=== PATIENT | male | born 1945 | race Caucasian/White ===

== ENCOUNTER → 2018-10-09 10:14 | Outpatient (CLI) | payer MEDICARE, SELFPAY ==
[2018-10-09 12:52] LABS: Absolute Lymphocyte Count 2.53 X10^3/uL (0.83-4.51); Absolute Neutrophil Count 6.1 X10^3/uL (2.0-7.7); Basophil# 0.09 X10^3/uL; Basophil% 0.9 % (0-1); Eosinophil# 0.13 X10^3/uL; Eosinophils% 1.3 % (0-5); Hematocrit 48.4 % (40-54); Hemoglobin 16.2 g/dL (13.0-16.5); Lymphocyte # 2.53 X10^3/ul (4.0); Lymphocyte % 26.1 % (19-41); Mean Corp Hgb Conc 33.5 g/dL (32-36); Mean Corpuscular Hgb 34.9 pg (27.0-32.0); Mean Corpuscular Volume 104.3 fL (80-94); Mean Platelet Vol. 11.7 fl (6.2-12.0); Monocyte# 0.81 X10^3/uL; Monocyte% 8.4 % (0-10); NRBC Flagged by Analyzer 0 % (0-5); Neutrophil # 6.08 X10^3/uL (2.7-7.7); Neutrophil % 62.9 % (47-70); Platelet Count 257 K/mm3 (150-450); RBC Distribution Width CV 12.7 % (11.6-14.6); RBC Distribution Width SD 48.9 fl (35.1-43.9); Red Blood Count 4.64 M/mm3 (4.6-6.2); White Blood Count 9.7 K/mm3 (4.4-11.0)
[2018-10-09 13:39] LABS: ALB/GLOB Ratio 0.8 RATIO (0.9-2.4); AST(SGOT) 26 U/L (15-37); Alanine Aminotransfer ALT/SGPT 30 U/L (16-61); Albumin, Serum 3.4 g/dL (3.2-5.0); Alkaline Phosphatase 95 U/L (45-117); Anion Gap 6 (5-15); BUN 15 mg/dL (7-18); BUN/Creat Ratio 11.5 RATIO (10-20); Calcium,Total 9.2 mg/dL (8.5-10.1); Chloride 106 mmol/L (98-107); EST Glomerular Filtration Rate 57 mL/min (>60); Est Glom Filt Rate - Afr Amer 69 mL/min (>60); Globulin 4.3 g/dL (2.2-4.2); Glucose 106 mg/dL (74-106); Potassium 4.4 mmol/L (3.5-5.1); Protein, Total 7.7 g/dL (6.4-8.2); Sodium Level 138 mmol/L (136-145); Thyroid Stim Hormone (TSH) 1.88 uIU/mL (0.358-3.74)
[2018-10-09 13:52] LABS: Hepatitis C Antibody Non-Reactive (Nonreactive)
== END ==
PROVIDERS: Visit Provider Family Medicine Geriatric Medicine
DX: I10 Essential (primary) hypertension (principal); Z13.89 Encounter for screening for other disorder; Z12.5 Encounter for screening for malignant neoplasm of prostate
CPT/HCPCS: 36415; 80053; 84153; 84443; 85025; 86803; G0103

== ENCOUNTER → 2019-07-22 12:29 | Outpatient (CLI) | payer MEDICARE, MEDICAID, SELFPAY ==
--- NOTE | 2019-07-22 12:48 | MRI_ITS ---
STUDY: MRI LUMBAR SPINE WITHOUT CONTRAST REASON FOR EXAM: Male, 74 years old. lumbar and rt groin pain TECHNIQUE: Standardized fat and water weighted pulse sequences were obtained in the sagittal and axial planes. COMPARISON: None FINDINGS: T12-L1: Normal endplates. Normal disc height, hydration and morphology. Normal bilateral facet joints. Normal central canal and bilateral lateral recesses. Normal bilateral intervertebral neural foramina. Normal lumbar lordosis. There is no substantial scoliosis. Normal conus medullaris that terminates at the T12/L1. Diffusely abnormal marrow signal throughout the lumbar spine sacrum and bony pelvis consistent with widespread metastatic disease. No pathologic compression fracture. L1-2: Mild bilobed disc protrusion produces mild spinal stenosis and mild bilateral neural foraminal stenosis. L2-3: Mild broad disc protrusion produces mild spinal stenosis and mild bilateral neural foraminal stenosis. L3-4: Normal endplates. Normal disc height, hydration and morphology. Normal bilateral facet joints. Normal central canal and bilateral lateral recesses. Normal bilateral intervertebral neural foramina. L4-5: Moderate the lateral facet hypertrophy and ligament flavum hypertrophy. Mild broad disc protrusion produces mild spinal stenosis and mild bilateral neural foraminal stenosis. L5-S1: Bilateral pars defects of the L5 vertebra consistent with L5 spondylolysis. 10 mm of anterolisthesis of L5 on S1 consistent with grade 2 spondylolisthesis. Mild broad disc protrusion produces mild spinal stenosis but severe bilateral neural foraminal stenosis with effacement of the L5 nerve roots bilaterally. Normal visualized sacral ala. Normal visualized paraspinous soft tissue structures. MRI/Spine Lumbar (Routine) IMPRESSION: 1. Widespread metastatic disease but no pathologic compression fracture. 2. L5 spondylolysis with grade 2 spondylolisthesis of L5 on S1 with severe bilateral neural foraminal stenosis with effacement of the L5 nerve roots bilaterally. Electronically Signed: Arden Egan MD at 14:44 EDT Tel , Service support ,
--- NOTE | 2019-07-22 12:48 | MRI_ITS ---
STUDY: MRI THORACIC SPINE WITHOUT CONTRAST REASON FOR EXAM: Male, 74 years old. thoracic pain TECHNIQUE: Standardized fat and water weighted pulse sequences were obtained in the sagittal and axial planes. COMPARISON: None. FINDINGS: Normal kyphosis of the thoracic spine. There is no substantial scoliosis. Diffusely abnormal narrow signal throughout the thoracic spine consistent with diffuse metastatic disease. No pathologic compression fracture. T1-2, T2-3, T3-4, T4-5, T5-6, T6-7, T7-8, T8-9, T9-10, T10-11, T11-12: Normal endplates. Normal disc hydration, heights and morphology of the corresponding intervertebral discs. Normal central canal and intervertebral neural foramina at the corresponding levels. Normal visualized thoracic cord. Normal conus medullaris that terminates at the T12/L1.. The soft tissue structures are unremarkable. MRI/Spine Thoracic (Routine) IMPRESSION: Diffuse metastatic disease but no pathologic compression fracture or cord compression. Electronically Signed: Arden Egan MD at 14:51 EDT Tel , Service support ,
== END ==
PROVIDERS: PCP Family Medicine; Visit Provider Family Medicine
DX: M54.5 Low back pain (principal); M54.6 Pain in thoracic spine
CPT/HCPCS: 72146; 72148

== ENCOUNTER → 2019-08-04 10:26 | Outpatient (CLI) | payer MEDICARE, MEDICAID, SELFPAY ==
[2019-07-30 10:48] VITALS: BMI 23.3
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
== END ==
PROVIDERS: PCP Family Medicine; Visit Provider Internal Medicine Hematology & Oncology
DX: C61 Malignant neoplasm of prostate (principal); C76.3 Malignant neoplasm of pelvis; C41.2 Malignant neoplasm of vertebral column; M54.5 Low back pain
CPT/HCPCS: 71260; 74177; Q9967

== ENCOUNTER → 2019-08-14 09:12 | Outpatient (CLI) | payer MEDICARE, MEDICAID, SELFPAY ==
[2019-07-30 10:48] VITALS: BMI 23.3
--- NOTE | 2019-08-14 09:13 | NM_ITS ---
CLINICAL: 74-year-old male with reported history of carcinoma of the prostate. WHOLE BODY 99m Tc MDP RADIONUCLIDE BONE SCINTIGRAPHY COMPARISON: CT of the chest, abdomen and pelvis reports 08/04/2019 FINDINGS: Following the intravenous administration of approximately 25.0 mCi of 99m Tc MDP, whole body bone images reveal: 1. Innumerable foci of increased radiopharmaceutical concentration are demonstrated in the bilateral hemipelvic calvarium, axial skeletal structures-too many to individually articulate as well as focally apparent in the left mid humeral diaphysis, the left proximal femoral diaphysis and lesser trochanteric aspect of the right proximal femur 2. An increase in tracer uptake is defined in the patellofemoral compartment of the left knee, bilateral wrist articulations and left hand. 3. The remaining skeletal structures are scintigraphically unremarkable with faintly defined bilateral renal images and urinary bladder activity identified. NM/Bone Scan Whole Body IMPRESSION: 1. The multifocal increase in radiopharmaceutical concentration observed in the calvarium, appendicular and axial skeleton is commensurate with diffuse osseous metastatic disease. 2. Degenerative arthritis appears expressed in the left knee, right and left wrists, the left hand. Electronically Signed: Arden Villatoro DO at 8:09 EDT Tel , Service support ,
== END ==
PROVIDERS: PCP Family Medicine; Referring Provider Internal Medicine Hematology & Oncology; Visit Provider Internal Medicine Hematology & Oncology
DX: M54.5 Low back pain (principal); C41.2 Malignant neoplasm of vertebral column; C76.3 Malignant neoplasm of pelvis; C61 Malignant neoplasm of prostate
CPT/HCPCS: 78306

== ENCOUNTER 2019-09-30 12:02 | Inpatient (IN) | payer MEDICARE, MEDICAID, SELFPAY ==
[2019-09-15 15:42] VITALS: BMI 20.7
[2019-09-30] VITALS (8 sets, daily range): BP systolic 115–132; BP diastolic 67–98; PULSE 94–109; RESP 18; TEMP 36.9–37.2; O2SAT 94–96; BMI 21.6; BMI 19.4; BMI 19.5
[2019-09-30 12:40] LABS: Bacteria 0 SEEN /hpf (None Seen); Mucous, Urine 0 SEEN /hpf (<or=2+); Squamous Epithelial Cells - UA 0 SEEN /hpf (0-5)
[2019-09-30 12:42] LABS: Absolute Lymphocyte Count 1.43 X10^3/uL (0.83-4.51); Absolute Neutrophil Count 8.2 X10^3/uL (2.0-7.7); Basophil# 0.04 X10^3/uL; Basophil% 0.3 % (0-1); Eosinophil# 0.03 X10^3/uL; Eosinophils% 0.3 % (0-5); Hematocrit 35.7 % (40-54); Hemoglobin 11.7 g/dL (13.0-16.5); Lymphocyte # 1.43 X10^3/ul (4.0); Mean Corp Hgb Conc 32.8 g/dL (32-36); Mean Corpuscular Volume 106.9 fL (80-94); Mean Platelet Vol. 10.2 fl (6.2-12.0); Monocyte# 2.09 X10^3/uL; Monocyte% 17.5 % (0-10); NRBC Flagged by Analyzer 1.3 % (0-5); Neutrophil # 8.15 X10^3/uL (2.7-7.7); Neutrophil % 68.5 % (47-70); POSITIVE DIFFERENTIAL YES; POSITIVE MORPHOLOGY YES; Platelet Count 227 K/mm3 (150-450); RBC Distribution Width CV 15.7 % (11.6-14.6); Red Blood Count 3.34 M/mm3 (4.6-6.2); White Blood Count 11.9 K/mm3 (4.4-11.0)
[2019-09-30 12:47] LABS: Differential Indicated SCAN CRITERIA MET
[2019-09-30 12:52] LABS: Color, Urine Red (Yellow); Glucose, Dipstick Normal (Normal); Ketone-Dipstick 5 mg/dl (Negative); Leukocyte Esterase-Dipstick 500 /ul (Negative); Nitrite-Dipstick Positive (Negative); Occult Blood-Urine 250 /ul (Negative); Protein-Dipstick 100 mg/dl (Negative); Urine Bilirubin Dipstick Negative (Negative); Urine Clarity Cloudy (Clear); Urine Urobilinogen 1 mg/dl (Normal)
[2019-09-30 12:58] LABS: Red Blood Cells-Urine 25-50 SEEN /hpf (0-5); White Blood Cells 50-100 SEEN /hpf (0-5)
[2019-09-30 12:58] LABS: Anion Gap 8 (5-15); BUN 24 mg/dL (7-18); BUN/Creat Ratio 20.9 RATIO (10-20); Calcium,Total 7.9 mg/dL (8.5-10.1); Chloride 109 mmol/L (98-107); Creatinine, Serum 1.15 mg/dL (0.70-1.30); EST Glomerular Filtration Rate 66 mL/min (>60); Est Glom Filt Rate - Afr Amer 80 mL/min (>60); Estimated Creatinine Clearance 52.05 ml/min; Glucose 167 mg/dL (74-106); Potassium 3.8 mmol/L (3.5-5.1); Sodium Level 137 mmol/L (136-145)
[2019-09-30 13:05] LABS: Lactic Acid 1.1 mmol/L (0.4-1.9)
[2019-09-30] MEDS: 0.9% Normal Saline 1,000 ML 150 ML IV (13:12)
[2019-09-30 13:16] LABS: Atypical Lymphocyte 1+ %; Reactive Lymphocyte 1+
--- NOTE | 2019-09-30 13:21 | HP.PCM_ITS ---
Problem List (1) UTI (urinary tract infection) Status: Acute Qualifiers: Urinary tract infection type: acute cystitis Hematuria presence: with hematuria Qualified Code(s): N30.01 - Acute cystitis with hematuria (2) Sepsis Status: Acute Qualifiers: Sepsis type: sepsis due to unspecified organism Sepsis acute organ dysfunction status: without acute organ dysfunction Qualified Code(s): A41.9 - Sepsis, unspecified organism (3) Chronic back pain Status: Chronic Qualifiers: Back pain location: back pain in unspecified location (4) Coronary artery disease Status: Acute Qualifiers: Coronary Disease-Associated Artery/Lesion type: unspecified vessel or lesion type [place] vs. transplanted heart: unspecified whether [place] or transplanted heart Associated angina: with unspecified angina Qualified Code(s): I25.119 - Atherosclerotic heart disease of [place] coronary artery with unspecified angin a pectoris (5) Bone metastases Status: Chronic (6) Prostate cancer Status: Chronic History of Present Illness Date of Admission: 09/30/19 Chief Complaint: Dysuria, frequency, hematuria - 2 weeks The patient is a 74 year old M with past medical history of metastatic prostate CA, resident in assisted living facility who comes in with complaints of dysuria, frequency, urgency, and hematuria ongoing for 2 weeks. Patient denies any fever or chills. Denies any nausea or vomiting or diarrhea. He has been noticed to be progressively weak and was sent to the emergency department. Patient is wheelchair-bound. Vitals in the ED showed temperature of 97.8F, heart rate 83, blood pressure 122/81, respiratory to 16, SPO2 is 94% on room air. WBC count 11.9, hemoglobin 11.7, platelet count 227, sodium 137, potassium 3.8, bicarbonate 20, chloride 109, BUN 24, creatinine 1.15, creatinine is 1.1. UA was red, cloudy, protein 100, occult blood 250, nitrite positive, leukocyte esterase 500, WBC was 50-100. Patient was started on IV ceftriaxone after blood and urine cultures were taken in the ED. Past Medical History Past Medical History (Chronic Problems): Chronic Problems (Last Reviewed 09/15/19 @ 15:37 by Danielle Escoto) Chronic back pain (Chronic) Debility (Chronic) Bone metastases (Chronic) Prostate cancer (Chronic) Medical History: Medical History (Last Reviewed 09/15/19 @ 15:37 by Danielle Escoto) Anemia D64.9 Anoxic brain damage, not elsewhere classified G93.1 Anxiety F41.9 Atherosclerotic heart disease of [place] coronary artery without angina pectoris I25.10 Cataract H26.9 Depressive disorder F32.9 Dysphagia, oropharyngeal phase R13.12 Fatigue R53.83 Hematuria R31.9 Hyperlipidemia E78.5 Low back pain M54.5 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 Malignant neoplasm of prostate C61 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 Myocardial infarction I21.9 Osteophyte of vertebrae M25.78 Seizure disorder G40.909 LAST SEIZURE WAS OVER 10 YEARS AGO Spondylosis without myelopathy or radiculopathy, lumbosacral region M47.817 Allergies Penicillins Allergy (Severe, Verified 09/30/19 12:16) Hives Home Medications: Ambulatory Orders Medication Instructions Recorded Aspirin [Aspirin, Baby] 81 mg PO DAILY@0800 07/27/19 Atorvastatin Calcium 40 mg PO QHS 07/27/19 Clopidogrel Bisulfate [Plavix] 75 mg PO QHS 07/27/19 Metoprolol Tartrate [Lopressor 25 mg PO BID 07/27/19 (Beta Yury)] Mirtazapine [Remeron] 15 mg PO QHS 07/27/19 Paulina-3 Fatty Acids [Paulina-3] 1,000 mg PO BID 07/27/19 Tramadol HCl [Ultram] 50 mg PO Q12H PRN 07/27/19 Glucosam/Reese-Msm1/C/Hair/Bosw 2 tab PO BREAKFAST 08/06/19 [Osteo Bi-Flex Caplet] Abiraterone Acetate [Zytiga] 1,000 mg PO DAILY 09/15/19 Prednisone 5 mg PO BID 09/15/19 Acetaminophen [Tylenol Arthritis] 650 mg PO BID 09/30/19 Calcium Carb/Vitamin D 1 tab PO BIDCM 09/30/19 [Caltrate-600 With Vit D Tab] Nitroglycerin 0.4 mg SL PRN PRN 09/30/19 Nut Tx, Lact-Reduced, Iron [Boost 237 ml PO DAILY 09/30/19 [facility]] Surgical History: Surgical History (Last Reviewed 09/15/19 @ 15:37 by Danielle Escoto) History of cholecystectomy Z90.49 Surgical History: cholecystectomy Lives: - - assisted living facility Smoking Status: Former smoker Tobacco Use: Non-smoker Alcohol: None Drugs: None - *Family History Maternal Family History: Family History (Last Reviewed 08/18/19 @ 15:07 by Danielle Escoto) Sister Breast cancer History Items: Unknown Paternal Family History: Family History (Last Reviewed 08/18/19 @ 15:07 by Danielle Escoto) Sister Breast cancer History Items: No pertinent history Review of Systems Constitutional: Reports: Anorexia, Malaise, Weakness, Fatigue. Denies: Chills, Fever, Night Sweats, Weight Change Eyes: Denies: Blurred vision, Cataracts, Conjunctivae Inflammation, Pain, Redness, Vision Change HEENT: Denies: Difficulty Hearing, Difficulty Swallowing, Head Aches, Hearing Changes, Post Nasal Drip, Sinus Congestion, Sinus Drainage Cardiovascular: Denies: Chest Pain, Claudication, Orthopnea, Palpitations, Paroxysmal Noc. Dyspnea Respiratory: Denies: Cough, Hemoptysis, Shortness of breath at rest, Shortness of breath upon exertion, Sputum production Gastrointestinal: Denies: Abdominal Pain, Constipation, Diarrhea, Hematemesis, Hematochezia, Nausea, Vomiting Genitourinary: Reports: Dysuria, Frequency, Hematuria, Hesitancy, Nocturia, Urgency Musculoskeletal: Denies: Joint Pain, Joint stiffness, Joint swelling, Joint Tenderness Skin: Denies: Rash, Wounds Neurological: Denies: Difficulty swallowing, Focal weakness, Numbness, Tingling Psychiatric: Denies: Anxiety, Depression, Homicidal Ideations, Suicidal Ideations Hematologic/ Lymphatic: Denies: Easy Bruising, Easy Bleeding VTE Information - Inpt Only VTE Present on Admission: No VTE Pharm Prophylaxis ordered?: Yes Patient Problems: Active and Suspected Problems (Last Reviewed 09/15/19 @ 15:37 by Danielle Escoto) UTI (urinary tract infection) (Acute) Sepsis (Acute) - Physical Exam Vitals/I&O's: Vital Signs Temp Pulse Resp BP Pulse Ox 98.7 F 109 H 18 125/73 H 94 09/30/19 12:08 09/30/19 12:08 09/30/19 12:08 09/30/19 12:08 09/30/19 12:08 Oxygen Delivery Method Room Air Weight: 66.3 kg Body Mass Index (BMI) 21.6 Intake and Output for Last 24 Hours 09/28/19 09/29/1920 23:59 23:59 23:59 Output Total 250 / 250 Balance -250 / -250 General: Alert, Oriented x3, Cooperative, No apparent distress, - - appears frail, chronically ill HEENT: Atraumatic, PERRLA, EOMI, Normocephalic Oral: Dry Mucosa Neck: Supple Lungs: Clear to auscultation, Normal air movement Cardiovascular: Regular rate, Regular Rhythm, Normal S1, Normal S2, No murmurs Abdomen: Bowel Sounds Present, Soft, Non Tender, Non-Distended, No Hepato- splenomegaly Extremities: Edema - bilateral trace bipedal edema, - - multiple distended veins in lower leg Skin: No rashes Musculoskeletal: No Tenderness to Palpation of Joints or Extremities Lymphatic: No Cervical, Supraclavicular, or Inguinal Adenopathy Neurological: Cranial nerves II-XII grossly intact, Neuro grossly intact Psych/Mental Status: Normal Affect, Appropriate Laboratory Results 09/30/19 12:15: Urine Color Red, Urine Clarity Cloudy, Urine pH 8.0, Ur Specific [place] 1.010, Urine Protein 100 H, Urine Glucose (UA) Normal, Urine Ketones 5 H , Urine Occult Blood 250 H, Urine Nitrite Positive H, Urine Bilirubin Negative, Urine Urobilinogen 1 H, Ur Leukocyte Esterase 500 H, Urine RBC 25-50 SEEN, Urine WBC 50-100 SEEN, Ur Squamous Epith Cells 0 SEEN, Urine Bacteria 0 SEEN, Urine Mucus 0 SEEN 09/30/19 12:25: WBC 11.9 H, RBC 3.34 L, Hgb 11.7 L, Hct 35.7 L, MCV 106.9 H, MCH 35.0 H, MCHC 32.8, RDW Std Deviation 61.0 H, RDW Coeff of Santi 15.7 H, Plt Count 227, MPV 10.2, Immature Gran % (Auto) 1.400 H, Neut % (Auto) 68.5, Lymph % (Auto) 12.0 L, [place] % (Auto) 17.5 H, Eos % (Auto) 0.3, Baso % (Auto) 0.3, Absolute Neuts (auto) 8.2 H, Absolute Lymphs (auto) 1.43, Nucleated RBC % 1.3, Diff Path Review May foll, Atypical Lymphocytes 1+, Reactive Lymphocytes 1+ 09/30/19 12:25: Sodium 137, Potassium 3.8, Chloride 109 H, Carbon Dioxide 20.0 L , Anion Gap 8, BUN 24 H, Creatinine 1.15, Estim Creat Clear Calc 52.05, Est GFR (MDRD) Af Amer 80, Est GFR (MDRD) Non-Af 66, BUN/Creatinine Ratio 20.9 H, Glucose 167 H, Calcium 7.9 L 09/30/19 12:25: Lactic Acid 1.1 09/30/19 12:25: Blood Type Pending, Antibody Screen Pending Current Medications Sodium Chloride () 1,000 mls @ 150 mls/hr IV .[id number] GAMALIEL Last Admin: 09/30/19 13:12 Dose: 150 mls/hr Documented by: Ceftriaxone Sodium (Rocephin) 1 gm in 50 mls @ 100 mls/hr IV X1 ONE Stop: 09/30/19 13:39 Assessment/Plan All Active Problems (Last Reviewed 09/15/19 @ 15:37 by Danielle Escoto) Encounter for education (Acute) UTI (urinary tract infection) (Acute) Sepsis (Acute) Coronary artery disease (Acute) 74 year old M with past medical history of metastatic prostate CA, resident in assisted living facility who comes in with complaints of dysuria, frequency, ur gency, and hematuria ongoing for 2 weeks. 1. Sepsis secondary to Acute UTI ( patient had leucocytosis, tachycardia) Urine and blood cultures are pending, stable vitals Started on IV ceftriaxone, will continue same, gentle IV fluids Would also get ultrasound of the kidneys and bladder 2. Metastatic prostate CA, with chronic low back pain Follows with oncology in the outpatient On androgen deprivation therapy with LHRH agonist as well as Zytiga and prednisone Continue on Tramadol 3. Remote history of seizure, will continue to monitor 4. CKD stage 3, baseline creatinine appears to be between 1.1 and 1.3, will continue to monitor 5. Rest of his comorbidities including CAD/hypertension/dyslipidemia/dementia/depression, all remain stable Continue on aspirin, statin, Plavix, metoprolol, remeron 6. DVT PPx- SCDs - on account of hematuria -May resume heparin from tomorrow if there is no more hematuria 7. CODE STATUS?DNR CC I discussed in details the various types of CODE STATUS-full code, DNR CCA, DNR CC. Patient and his daughter chose DNR CC and stated that he did not want any aggressive care and want to focus on comfort. Palliative care is being planned by oncology in the outpatient. Time spent discussing CODE STATUS 18 minutes Inpatient E&M: 29505 Init Hosp L3 Procedures: 49195 Advncd Care Plan 30 Min
--- NOTE | 2019-09-30 13:24 | ED.DCSUM_ITS ---
- ER Visit Summary Date of Service: 09/30/19 Chief Complaint: [Hematuria] History of Present Illness: The patient is a 74 M [presents to the emergency department with blood in his urine for about a week and a half. Patient complains of dysuria as well. Today's feeling weak. Patient sent to ER for further evaluation from assisted living facility. Patient currently being treated for metastatic stage IV prostate cancer. Patient's last chemo was on 09/14. Patient has history of prior PR, hypertension, depression, high cholesterol, seizure disorder, and dementia. Patient denies any fevers. He denies nausea or vomiting.] Physical Examination: [HEENT-PERRLA, EOMI. Cranial nerves II through XII grossly intact. TMs clear. Mucous membranes moist. No adenopathy. Cardiovascular-regular and tachycardic. No murmurs auscultated. Lungs-clear to auscultation, chest wall stable without crepitus or subcu emphysema Abdomen-normoactive bowel sounds, soft, nontender, no rebound or rigidity, no peritoneal signs. Extremities-intact ?4, normal range of motion, normal pulses, atraumatic] Test Results: [CBC with differential white 11.9, hemoglobin 11.7, hematocrit 36, platelets 227. Sodium 137, potassium 3.8, chloride 109, CO2 20, glucose 167. Urinalysis positive for 500 cassette esterase and positive for nitrites. Patient had 50-100 WBCs and 25-50 RBCs.] Emergency Department Course and Treatment: [IV line established. Patient had urine culture ordered. Patient ordered Rocephin 1 g IV] Treatment Plan: [Admit] Disposition: [Admit] Impression: [UTI Sepsis] This note was generated with [email or web address] dictation software. It may contain incorrect words, spelling, and punctuation that were not noted in review of the chart prior to signing ED Disposition - Plan for ED Patient: Referrals: Elliot Serrano MD [Primary Care Provider] -
[2019-09-30] MEDS: Ceftriaxone 1 GM/50 ML BAG IV (13:29)
--- NOTE | 2019-09-30 13:42 | NURSING ---
MED SURG PAINTSIL UTI, SEPSIS
--- NOTE | 2019-09-30 15:11 | US_ITS ---
STUDY: RENAL ULTRASOUND - COMPLETE REASON FOR EXAM: Male, 74 years old. UTI TECHNIQUE: Ultrasound evaluation of the kidneys was performed with real-time and static lee-scale imaging. COMPARISON: CT scan 08/04/2019. FINDINGS: RIGHT KIDNEY: Normal location, with moderate renal atrophy. The right kidney measures 7.5 x 2.8 x 4.1 cm. There is a normal cortex of the right kidney. The renal cortex measures 0.7 cm. There is a 1.6 cm cyst. There are no right renal calculi. There is no right hydronephrosis. DISTAL RIGHT URETER: There is non-visualization of the distal right ureter. There is no demonstrated right ureterovesical junction calculus. There is no demonstrated right ureteral jet. LEFT KIDNEY: Normal location of the left kidney, which is normal in size. The left kidney measures 11.2 x 4.7 x 6.2 cm. There is a normal cortex of the left kidney. The renal cortex measures 1.6 cm. There is no left renal mass or cyst. There are no left renal calculi. There is no left hydronephrosis. DISTAL LEFT URETER: There is non-visualization of the distal left ureter. There is no demonstrated left ureterovesical junction calculus. There is no demonstrated left ureteral jet. BLADDER: Incompletely distended, normal contour of bladder. There is a diffusely thickened wall of the distended bladder measuring as much as 1.1 cm. There is no demonstrated mass within the urinary bladder. There are no demonstrated bladder calculi. US/Kidney and Bladder IMPRESSION: Right renal atrophy. No acute abnormalities of the kidneys. Marked thickening of the bladder wall. Electronically Signed: Farhan Higginbotham MD at 18:17 EDT , Service support ,
[2019-09-30 16:01] LABS: AST(SGOT) 36 U/L (15-37); Alanine Aminotransfer ALT/SGPT 27 U/L (16-61); Albumin, Serum 2.7 g/dL (3.2-5.0); Alkaline Phosphatase 1398 U/L (45-117); Bilirubin, Direct 0.42 mg/dL (0.00-0.30); Globulin 3.6 g/dL (2.2-4.2); Protein, Total 6.3 g/dL (6.4-8.2)
[2019-09-30] MEDS: Acetaminophen 325 MG Tablet 650 MG PO (16:40)
[2019-09-30] MEDS: 0.9% Normal Saline 1,000 ML 100 ML IV (16:41)
[2019-09-30] MEDS: predniSONE 5 MG Tablet PO (16:43)
[2019-09-30] MEDS: Calcium Carb/Vitamin D 1 TABLET Tablet PO (16:43)
[2019-09-30] MEDS: traMADol 50 MG Tablet PO (20:25)
[2019-09-30] MEDS: Acetaminophen 500 MG Tablet PO (21:39)
[2019-09-30] MEDS: Metoprolol Tartrate 25 MG Tablet PO (21:40)
[2019-09-30] MEDS: Atorvastatin Calcium 40 MG Tablet PO (21:40)
[2019-09-30] MEDS: Mirtazapine 15 MG Tablet PO (21:40)
[2019-09-30] MEDS: Clopidogrel Bisulfate 75 MG Tablet PO (21:40)
[2019-10-01] VITALS (8 sets, daily range): BP systolic 122–161; BP diastolic 65–91; PULSE 78–120; RESP 16–20; TEMP 36.9–37.4; O2SAT 93–96; BMI 19.4
[2019-10-01] MEDS: 0.9% Normal Saline 1,000 ML 100 ML IV (02:59)
[2019-10-01] MEDS: Acetaminophen 500 MG Tablet PO ×3 (05:32→20:51)
[2019-10-01 06:17] LABS: Absolute Lymphocyte Count 1.41 X10^3/uL (0.83-4.51); Basophil# 0.02 X10^3/uL; Basophil% 0.2 % (0-1); Eosinophil# 0.03 X10^3/uL; Eosinophils% 0.3 % (0-5); Hematocrit 34.6 % (40-54); Hemoglobin 10.9 g/dL (13.0-16.5); Lymphocyte # 1.41 X10^3/ul (4.0); Lymphocyte % 11.8 % (19-41); Mean Corp Hgb Conc 31.5 g/dL (32-36); Mean Corpuscular Hgb 34.8 pg (27.0-32.0); Mean Corpuscular Volume 110.5 fL (80-94); Mean Platelet Vol. 10.3 fl (6.2-12.0); Monocyte# 1.43 X10^3/uL; NRBC Flagged by Analyzer 0.8 % (0-5); Neutrophil # 8.95 X10^3/uL (2.7-7.7); Neutrophil % 74.9 % (47-70); POSITIVE MORPHOLOGY YES; Platelet Count 212 K/mm3 (150-450); RBC Distribution Width CV 15.9 % (11.6-14.6); RBC Distribution Width SD 65.3 fl (35.1-43.9); Red Blood Count 3.13 M/mm3 (4.6-6.2); White Blood Count 11.9 K/mm3 (4.4-11.0)
[2019-10-01 06:18] LABS: Differential Indicated SCAN CRITERIA MET
[2019-10-01 06:47] LABS: Differential Comment SCANNED
[2019-10-01 06:59] LABS: ALB/GLOB Ratio 0.7 RATIO (0.9-2.4); AST(SGOT) 34 U/L (15-37); Alanine Aminotransfer ALT/SGPT 26 U/L (16-61); Albumin, Serum 2.3 g/dL (3.2-5.0); Alkaline Phosphatase 1138 U/L (45-117); Anion Gap 5 (5-15); BUN 20 mg/dL (7-18); BUN/Creat Ratio 20.9 RATIO (10-20); Calcium,Total 8.1 mg/dL (8.5-10.1); Chloride 110 mmol/L (98-107); Creatinine, Serum 0.96 mg/dL (0.70-1.30); EST Glomerular Filtration Rate 81 mL/min (>60); Est Glom Filt Rate - Afr Amer 98 mL/min (>60); Estimated Creatinine Clearance 56.24 ml/min; Globulin 3.5 g/dL (2.2-4.2); Glucose 140 mg/dL (74-106); Potassium 3.8 mmol/L (3.5-5.1); Protein, Total 5.8 g/dL (6.4-8.2); Sodium Level 138 mmol/L (136-145)
[2019-10-01] MEDS: predniSONE 5 MG Tablet PO ×2 (09:48→16:52)
[2019-10-01] MEDS: Calcium Carb/Vitamin D 1 TABLET Tablet PO ×2 (09:48→16:52)
[2019-10-01] MEDS: Aspirin 81 MG TAB.CHEW PO (09:48)
[2019-10-01] MEDS: Ceftriaxone 1 GM/50 ML BAG IV (09:49)
[2019-10-01] MEDS: Metoprolol Tartrate 25 MG Tablet PO ×2 (09:49→20:51)
--- NOTE | 2019-10-01 10:32 | NURSING ---
called Madeline at [facility] and provided information regarding consult. Cici, clerk secretary alexandrea requested pt information to [facility]
--- NOTE | 2019-10-01 11:07 | CASEMGMT ---
Addendum entered by Lucia Eduardo 10/01/19 15:44: SW in to speak with pt. SW introduced self and role at [facility]. Pt is alert and orientated x3. Pt confirms that he is from [facility] and will be returning at discharge. ED placed a call to [facility] and spoke with Sofia in admissions. Sofia states they are waiting for call back from pt's daughter Rere to arrange a time to meet to sign Hospice papers. Sofia states they will do hospice for pt once he returns to [facility]. Plan: Return to [facility] once medically cleared, likely with Hospice Original Note: Social Work Note Pt is listed as being from [facility]. ED placed a call to Lorena at [facility]. Lorena states pt is long term care administrator resident and is able to return when medically ready. ED did update Lorena that Hospice referral has been made. Lucia Eduardo FIRE SUPPRESSION CAPTAIN, BEER COOLER
[2019-10-01 12:11] LABS: Pathologist Review Reviewed
--- NOTE | 2019-10-01 13:22 | PN_ITS ---
<Elvin Caballero - Last Filed: 10/01/19 13:22> Patient Problems: Active and Suspected Problems (Last Reviewed 09/15/19 @ 15:37 by Danielle Escoto) UTI (urinary tract infection) (Acute) Sepsis (Acute) Reason for Visit: UTI Subjective: Pt resting comfortably in bed NAD. Reports ongoing dysruria, chills. No fever. Some BL all over back pain. No CVA tenderness. No cough/sob/nausea/vomiting/diarrhea. Pt reports that he is not aware that his cancer has spread anywhere. Vitals/I&O's: Vital Signs Temp Pulse Resp BP Pulse Ox 98.5 F 118 H 18 138/67 H 94 10/01/19 09:41 10/01/19 09:49 10/01/19 09:41 10/01/19 09:41 10/01/19 09:41 Oxygen Flow Rate (L/min) 2 Oxygen Delivery Method Room Air Weight: 131 lb 13.383 oz Body Mass Index (BMI) 19.4 Intake and Output for Last 24 Hours 09/29/19 09/30/19 10/01/19 23:59 23:59 23:59 Intake Total 1192.5 / 1192.5 1473.33 / 1473.33 Output Total 525 / 525 275 / 275 Balance 667.5 / 667.5 1198.33 / 1198.33 General: Alert, Oriented x3, Cooperative HEENT: Atraumatic, PERRLA, EOMI, Normocephalic Neck: Supple, No JVD, Negative Carotid Bruits Lungs: Clear to auscultation, Normal air movement Cardiovascular: Regular rate, No murmurs Abdomen: Bowel Sounds Present, Soft, Non Tender Extremities: No edema, Capillary Refill Less than 3 Seconds Skin: No rashes, No breakdown Musculoskeletal: No Tenderness to Palpation of Joints or Extremities Neurological: Cranial nerves II-XII grossly intact Psych/Mental Status: Normal Affect, Appropriate, Alert and oriented to time, place, person, mood and affect Microbiology Past 72 Hours 09/30/19 12:15 Urine, Clean Catch Urine Culture - Preliminary Gram negative debby Laboratory Results 09/30/19 12:25: Diff Path Review Reviewed 09/30/19 12:25: Blood Type O POSITIVE, Antibody Screen NEGATIVE 09/30/19 12:25: Total Bilirubin 0.90, Direct Bilirubin 0.42 H, AST 36, ALT 27, Alkaline Phosphatase 1398 H, Total Protein 6.3 L, Albumin 2.7 L, Globulin 3.6 10/01/19 05:45: WBC 11.9 H, RBC 3.13 L, Hgb 10.9 L, Hct 34.6 L, MCV 110.5 H, MCH 34.8 H, MCHC 31.5 L, RDW Std Deviation 65.3 H, RDW Coeff of Santi 15.9 H, Plt Count 212, MPV 10.3, Immature Gran % (Auto) 0.800, Neut % (Auto) 74.9 H, Lymph % (Auto) 11.8 L, [place] % (Auto) 12.0 H, Eos % (Auto) 0.3, Baso % (Auto) 0.2, Absolute Neuts (auto) 9.0 H, Absolute Lymphs (auto) 1.41, Nucleated RBC % 0.8, Differential Comment SCANNED 10/01/19 05:45: Sodium 138, Potassium 3.8, Chloride 110 H, Carbon Dioxide 23.0, Anion Gap 5, BUN 20 H, Creatinine 0.96, Estim Creat Clear Calc 56.24, Est GFR (MDRD) Af Amer 98, Est GFR (MDRD) Non-Af 81, BUN/Creatinine Ratio 20.9 H, Glucose 140 H, Calcium 8.1 L, Total Bilirubin 0.60, AST 34, ALT 26, Alkaline Phosphatase 1138 H, Total Protein 5.8 L, Albumin 2.3 L, Globulin 3.5, Albumin/Globulin Ratio 0.7 L Current Medications Acetaminophen (Tylenol) 650 mg PO Q6H PRN PRN PRN Reason: Pain Score 1-10/Temp > 100.7 F Last Admin: 09/30/19 16:40 Dose: 650 mg Documented by: Acetaminophen (Tylenol) 500 mg PO TID [facility] Last Admin: 10/01/19 05:32 Dose: 500 mg Documented by: Aspirin (Aspirin, Baby) 81 mg PO DAILY@0800 [facility] Last Admin: 10/01/19 09:48 Dose: 81 mg Documented by: Atorvastatin Calcium (Lipitor) 40 mg PO QHS [facility] Last Admin: 09/30/19 21:40 Dose: 40 mg Documented by: Calcium/Vitamin D (Os-Jm 500mg + D) [facility] Last Admin: 10/01/19 09:48 Dose: 1 tablet Documented by: Clopidogrel Bisulfate (Plavix) 75 mg PO QHS [facility] Last Admin: 09/30/19 21:40 Dose: 75 mg Documented by: Sodium Chloride () 250 mls @ 15 mls/hr IV .[id number] PRN PRN Reason: Saline Flush Sodium Chloride () 250 mls @ 15 mls/hr IV .[id number] PRN PRN Reason: Additional IVPB Infusion Ceftriaxone Sodium (Rocephin) 1 gm in 50 mls @ 100 mls/hr IV Q24 [facility] Last Infusion: 10/01/19 10:30 Dose: Infused Documented by: Magnesium Hydroxide (Milk Of Magnesia) 30 ml PO DAILY PRN PRN PRN Reason: Constipation Melatonin (Melatonin) 3 mg PO QHS PRN PRN PRN Reason: INSOMNIA Metoprolol Tartrate (Lopressor (Beta Yury)) 25 mg PO BID [facility] Last Admin: 10/01/19 09:49 Dose: 25 mg Documented by: [facility]) [facility] Last Admin: 09/30/19 21:40 Dose: 15 mg Documented by: Ondansetron HCl (Zofran) 4 mg IV Q8H PRN PRN PRN Reason: NAUSEA/VOMITING Prednisone () [facility] Last Admin: 10/01/19 09:48 Dose: 5 mg Documented by: Sodium Chloride () 10 - 40 ml IV UD PRN PRN Reason: SALINE FLUSH Tramadol HCl (Ultram) 50 mg PO Q12H PRN PRN Reason: Pain Score 1-10/10 Last Admin: 09/30/19 20:25 Dose: 50 mg Documented by: STROKE Vital Signs/Narrative: Vital Signs Temp Pulse Resp BP Pulse Ox 10/01/19 09:49 118 H 10/01/19 09:41 98.5 F 118 H 18 138/67 H 94 Medical Necessity - Tobacco Use Smoking Status: Former smoker Tobacco Use: Non-smoker Assessment/Plan All Active Problems (Last Reviewed 09/15/19 @ 15:37 by Danielle Escoto) Encounter for education (Acute) UTI (urinary tract infection) (Acute) Sepsis (Acute) Coronary artery disease (Acute) 1. UTI - continue rocephin. cx with GNR. Renal US with Right renal atrophy, marked thickening of the bladder wall. Leukocytosis, mild, unchanged. Nof ever. 2. Prostate cancer with bone mets - chronic back pain. pt and famiyl to discuss hospice today, 3. CAD - asa/statin/plavix/metoprolol DVT ppx: defer additional agent with hx of 2 weeks of hematuria and anemia DC planning: hospice referral. This patient was seen by lEvin Caballero PA-C under the supervision of Dr. Ontiveros. <Braydon Ontiveros F - Last Filed: 10/01/19 15:53> Vitals/I&O's: Vital Signs Temp Pulse Resp BP Pulse Ox 99.4 F H 100 18 122/65 H 95 10/01/19 14:57 10/01/19 14:57 10/01/19 14:57 10/01/19 14:57 10/01/19 14:57 Oxygen Flow Rate (L/min) 2 Oxygen Delivery Method Room Air Weight: 131 lb 13.383 oz Body Mass Index (BMI) 19.4 Intake and Output for Last 24 Hours 09/29/19 09/30/19 10/01/19 23:59 23:59 23:59 Intake Total 1192.5 / 1192.5 1790.00 / 1790.00 Output Total 525 / 525 700 / 700 Balance 667.5 / 667.5 1090.00 / 1090.00 Microbiology Past 72 Hours 09/30/19 12:15 Urine, Clean Catch Urine Culture - Preliminary Gram negative debby Laboratory Results 09/30/19 12:25: Diff Path Review Reviewed 09/30/19 12:25: Total Bilirubin 0.90, Direct Bilirubin 0.42 H, AST 36, ALT 27, Alkaline Phosphatase 1398 H, Total Protein 6.3 L, Albumin 2.7 L, Globulin 3.6 10/01/19 05:45: WBC 11.9 H, RBC 3.13 L, Hgb 10.9 L, Hct 34.6 L, MCV 110.5 H, MCH 34.8 H, MCHC 31.5 L, RDW Std Deviation 65.3 H, RDW Coeff of Santi 15.9 H, Plt Count 212, MPV 10.3, Immature Gran % (Auto) 0.800, Neut % (Auto) 74.9 H, Lymph % (Auto) 11.8 L, [place] % (Auto) 12.0 H, Eos % (Auto) 0.3, Baso % (Auto) 0.2, Absolute Neuts (auto) 9.0 H, Absolute Lymphs (auto) 1.41, Nucleated RBC % 0.8, Differential Comment SCANNED 10/01/19 05:45: Sodium 138, Potassium 3.8, Chloride 110 H, Carbon Dioxide 23.0, Anion Gap 5, BUN 20 H, Creatinine 0.96, Estim Creat Clear Calc 56.24, Est GFR (MDRD) Af Amer 98, Est GFR (MDRD) Non-Af 81, BUN/Creatinine Ratio 20.9 H, Glucose 140 H, Calcium 8.1 L, Total Bilirubin 0.60, AST 34, ALT 26, Alkaline Phosphatase 1138 H, Total Protein 5.8 L, Albumin 2.3 L, Globulin 3.5, Albumin/Globulin Ratio 0.7 L Current Medications Acetaminophen (Tylenol) 650 mg PO Q6H PRN PRN PRN Reason: Pain Score 1-10/Temp > 100.7 F Last Admin: 09/30/19 16:40 Dose: 650 mg Documented by: Acetaminophen (Tylenol) 500 mg PO TID [facility] Last Admin: 10/01/19 14:07 Dose: 500 mg Documented by: Aspirin (Aspirin, Baby) 81 mg PO DAILY@0800 [facility] Last Admin: 10/01/19 09:48 Dose: 81 mg Documented by: Atorvastatin Calcium (Lipitor) 40 mg PO QHS [facility] Last Admin: 09/30/19 21:40 Dose: 40 mg Documented by: Calcium/Vitamin D (Os-Jm 500mg + D) 1 tablet PO BIDCM [facility] Last Admin: 10/01/19 09:48 Dose: 1 tablet Documented by: Clopidogrel Bisulfate (Plavix) 75 mg PO QHS [facility] Last Admin: 09/30/19 21:40 Dose: 75 mg Documented by: Sodium Chloride () 250 mls @ 15 mls/hr IV .[id number] PRN PRN Reason: Saline Flush Sodium Chloride () 250 mls @ 15 mls/hr IV .[id number] PRN PRN Reason: Additional IVPB Infusion Ceftriaxone Sodium (Rocephin) 1 gm in 50 mls @ 100 mls/hr IV Q24 [facility] Last Infusion: 10/01/19 10:30 Dose: Infused Documented by: Magnesium Hydroxide (Milk Of Magnesia) 30 ml PO DAILY PRN PRN PRN Reason: Constipation Melatonin (Melatonin) 3 mg PO QHS PRN PRN PRN Reason: INSOMNIA Metoprolol Tartrate (Lopressor (Beta Yury)) 25 mg PO BID [facility] Last Admin: 10/01/19 09:49 Dose: 25 mg Documented by: Mirtazapine (Remeron) 15 mg PO QHS [facility] Last Admin: 09/30/19 21:40 Dose: 15 mg Documented by: Nutritional Formula (Lactose Free) (Ensure Enlive) 120 ml PO 4X/DAY [facility] Ondansetron HCl (Zofran) 4 mg IV Q8H PRN PRN PRN Reason: NAUSEA/VOMITING Phenazopyridine HCl (Azo Standard) 95 mg PO TID [facility] Stop: 10/03/19 06:01 Last Admin: 10/01/19 14:07 Dose: 95 mg Documented by: Pred[facility]one () [facility] Last Admin: 10/01/19 09:48 Dose: 5 mg Documented by: Sodium Chloride () 10 - 40 ml IV UD PRN PRN Reason: SALINE FLUSH Last Admin: 10/01/19 14:07 Dose: 10 ml Documented by: Tramadol HCl (Ultram) 50 mg PO Q12H PRN PRN Reason: Pain Score 1-10/10 Last Admin: 09/30/19 20:25 Dose: 50 mg Documented by: STROKE Vital Signs/Narrative: Vital Signs Temp Pulse Resp BP Pulse Ox 10/01/19 14:57 99.4 F H 100 18 122/65 H 95 Addendum: Dr. Ontiveros I personally examined the patient and reviewed the chart. I agree with the above. 74-year-old male with a history of metastatic prostate cancer who lives in assisted living presents with dysuria and frequency. He is found to have a gram-negative debby UTI, spent sensitivities and speciation are still pending. We will continue with antibiotics however family would like to discuss his case with hospice. He has the beginnings of dementia but is still very alert and is also okay with discussing hospice care. Continue with his IV antibiotics for now however if he does choose to go hospice he can transition to oral antibiotics and continue these while on hospice. Inpatient E&M: [id number] Subs Hosp L2
[2019-10-01] MEDS: Phenazopyridine 95 MG Tablet PO ×2 (14:07→20:51)
[2019-10-01] MEDS: 0.9% Saline Lock 10 ML Syringe IV ×2 (14:07→22:22)
--- NOTE | 2019-10-01 14:51 | NT.THERAPY_ITS ---
Nutrition Therapy Report - History Nutrition Services has been consulted to:: Manage nutrient details of diet order Current diet / nutrition support order:: regular - Anthropometric Measurements Height:: 5 ft 9 in Weight:: 59.8 kg Body Mass Index (BMI):: 19.4 - Relevant Labs Relevant Labs:: WBC 11.9 K/mm3 (4.4-11.0) H 10/01/19 05:45 RBC 3.13 M/mm3 (4.6-6.2) L 10/01/19 05:45 Hgb 10.9 g/dL (13.0-16.5) L 10/01/19 05:45 Hct 34.6 % (40-54) L 10/01/19 05:45 MCV 110.5 fL (80-94) H 10/01/19 05:45 MCH 34.8 pg (27.0-32.0) H 10/01/19 05:45 MCHC 31.5 g/dL (32-36) L 10/01/19 05:45 RDW Std Deviation 65.3 fl (35.1-43.9) H 10/01/19 05:45 RDW Coeff of Santi 15.9 % (11.6-14.6) H 10/01/19 05:45 Immature Gran % (Auto) 1.400 % (0.0-0.9) H 09/30/19 12:25 Neut % (Auto) 74.9 % (47-70) H 10/01/19 05:45 Lymph % (Auto) 11.8 % (19-41) L 10/01/19 05:45 [place] % (Auto) 12.0 % (0-10) H 10/01/19 05:45 Absolute Neuts (auto) 9.0 X10^3/uL (2.0-7.7) H 10/01/19 05:45 Chloride 110 mmol/L (98-107) H 10/01/19 05:45 Carbon Dioxide 20.0 mmol/L (21.0-32.0) L 09/30/19 12:25 BUN 20 mg/dL (7-18) H 10/01/19 05:45 BUN/Creatinine Ratio 20.9 RATIO (10-20) H 10/01/19 05:45 Glucose 140 mg/dL (74-106) H 10/01/19 05:45 Calcium 8.1 mg/dL (8.5-10.1) L 10/01/19 05:45 Direct Bilirubin 0.42 mg/dL (0.00-0.30) H 09/30/19 12:25 Alkaline Phosphatase 1138 U/L (45-117) H 10/01/19 05:45 Total Protein 5.8 g/dL (6.4-8.2) L 10/01/19 05:45 Albumin 2.3 g/dL (3.2-5.0) L 10/01/19 05:45 Albumin/Globulin Ratio 0.7 RATIO (0.9-2.4) L 10/01/19 05:45 - Assessment Food / Nutrition-Related History:: 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 Resides in assisted living facility. Drinks ensure with meals, requests additional ONS between meals-will provide. CBW 131.8#, Patient reports wt loss from 167# x2 months ago. Wt from EMR was 156# on 07/30/19 indicating a 24.2# / 15.5% wt loss x 2 months and 139.9# on 09/15/19 indicates 8.1# / 5.7% wt loss x ~2 weeks. Patient aware of weight decline, reports he hasn't been eating much d/t his current condition. - Nutrition Diagnosis Problem / Etiology / Signs & Symptoms (PES):: Severe malnutrition related to increased energy needs with metastatic cancer as evidenced by estimated poor PO intake meeting less than 75% of pt's estimated needs for 2 months, 24.2# / 15.5% wt loss x 2 months and 8.1# / 5.7% wt loss x ~2 weeks. Evidence of Malnutrition Exists:: Yes Severe PCM:: Chronic Illness - Nutrition Intervention Nutrition Prescription:: [id number] calories/day; 65-75 g protein/day - Food / Nutrient Delivery Interventions Summary of nutrition intervention:: Pt requesting additional ensure/ONS. Will provide Ensure Enlive at medpass and w/ meals. Nutrition support ordered as / adjusted to:: 120mL ensure enlive 4x/day w/ medpass and 240mL w/ meals; continue regular diet. Nutrition education provided?: No - MNT Monitoring Further MNT monitoring and evaluation required?: Yes MNT Follow-up in:: 3-5 days
[2019-10-01] MEDS: Mirtazapine 15 MG Tablet PO (20:51)
[2019-10-01] MEDS: Clopidogrel Bisulfate 75 MG Tablet PO (20:51)
[2019-10-01] MEDS: Atorvastatin Calcium 40 MG Tablet PO (20:51)
[2019-10-01] MEDS: Ondansetron 4 MG/2 ML Vial IV (22:22)
[2019-10-02 02:46] VITALS: BP 121/78; PULSE 89; RESP 18; TEMP 36.9; O2SAT 94
[2019-10-02 02:49] VITALS: PULSE 89
[2019-10-02] MEDS: Acetaminophen 500 MG Tablet PO ×2 (05:15→13:25)
[2019-10-02 06:14] LABS: Absolute Lymphocyte Count 1.77 X10^3/uL (0.83-4.51); Absolute Neutrophil Count 9.5 X10^3/uL (2.0-7.7); Basophil# 0.04 X10^3/uL; Basophil% 0.3 % (0-1); Eosinophil# 0.06 X10^3/uL; Eosinophils% 0.5 % (0-5); Hematocrit 31.3 % (40-54); Hemoglobin 10.2 g/dL (13.0-16.5); Lymphocyte # 1.77 X10^3/ul (4.0); Lymphocyte % 13.5 % (19-41); Mean Corp Hgb Conc 32.6 g/dL (32-36); Mean Corpuscular Hgb 34.9 pg (27.0-32.0); Mean Corpuscular Volume 107.2 fL (80-94); Mean Platelet Vol. 10.3 fl (6.2-12.0); Monocyte# 1.49 X10^3/uL; Monocyte% 11.4 % (0-10); NRBC Flagged by Analyzer 0.5 % (0-5); Neutrophil # 9.49 X10^3/uL (2.7-7.7); Neutrophil % 72.3 % (47-70); Platelet Count 213 K/mm3 (150-450); RBC Distribution Width CV 15.4 % (11.6-14.6); RBC Distribution Width SD 60.6 fl (35.1-43.9); Red Blood Count 2.92 M/mm3 (4.6-6.2); White Blood Count 13.1 K/mm3 (4.4-11.0)
[2019-10-02 06:30] LABS: Anion Gap 5 (5-15); BUN 22 mg/dL (7-18); BUN/Creat Ratio 27.8 RATIO (10-20); Calcium,Total 7.9 mg/dL (8.5-10.1); Chloride 107 mmol/L (98-107); Creatinine, Serum 0.79 mg/dL (0.70-1.30); EST Glomerular Filtration Rate 101 mL/min (>60); Est Glom Filt Rate - Afr Amer 123 mL/min (>60); Estimated Creatinine Clearance 53.99 ml/min; Glucose 158 mg/dL (74-106); Potassium 3.9 mmol/L (3.5-5.1); Sodium Level 137 mmol/L (136-145)
[2019-10-02] MEDS: predniSONE 5 MG Tablet PO (08:55)
[2019-10-02] MEDS: Aspirin 81 MG TAB.CHEW PO (08:55)
[2019-10-02] MEDS: Calcium Carb/Vitamin D 1 TABLET Tablet PO (08:55)
[2019-10-02 09:04] VITALS: BP 130/84; PULSE 108; RESP 18; TEMP 36.8; O2SAT 94
[2019-10-02 09:13] VITALS: BP 130/84; PULSE 108
[2019-10-02] MEDS: Ceftriaxone 1 GM/50 ML BAG IV (09:13)
[2019-10-02] MEDS: Metoprolol Tartrate 25 MG Tablet PO (09:13)
[2019-10-02] MEDS: 0.9% Saline Lock 10 ML Syringe IV ×2 (09:14→13:26)
--- NOTE | 2019-10-02 10:24 | CASEMGMT ---
Social Work Note Pt could discharge either today or tomorrow to [facility] with Hospice services. ED placed a call to Lorena at [facility] and updated her that pt could discharge today or tomorrow with Hospice. Lorena states understanding, confirms that [facility] is not requiring COVID test for pt to return and [facility] will just do a COVID test when pt returns. Plan: Return to [facility] intermediate with Hospice services once medically cleared. Green sheet, transport form on pt's chart. Lucia Eduardo SECURITY SHIFT SUPERVISOR, [employer]
--- NOTE | 2019-10-02 11:05 | PCM.EXTCARCO ---
- Diet 09/30/19 15:12 Diet: Regular Diet Food consistency:: Regular Liquid Consistency:: Regular/Thin Type of Dietary Supplement:: Ensure Complete Is pt able to select menu?: No - Routine Orders/Code Status Suppository Type: Dulcolax 10mg Suppository Frequency: Daily PRN Code Status: DNRCC - Therapies Physical Therapy: Eval and Treat Occupational Therapy: Eval and Treat - Problem/Diagnosis (1) Sepsis Status: Acute Current Visit: Yes (2) UTI (urinary tract infection) Status: Acute Current Visit: Yes (3) Coronary artery disease Status: Chronic Current Visit: No (4) Bone metastases Status: Chronic Current Visit: No (5) Debility Status: Chronic Current Visit: No (6) Prostate cancer Status: Chronic Current Visit: No - Allergies/Procedures Done in Hospital Allergies/Adverse Reactions: Allergies Penicillins Allergy (Severe, Verified 09/30/19 12:16) Hives Procedures: None - Type of Care/Length of Stay Estimated LOS: More Than 30 Days Type of Care Needed: LTAC Rehab Potential: Poor Prognosis: Poor - Additional Orders/Day of Discharge Day of Discharge: 10/02/19 - Dietary and Speech Recommendations Dietitian Recommendations/Changes: Ensure Enlive 120ml 4x/day at medpass. Will continue regular diet per order with ensure at meals. - Follow Up Care Primary Care Physician: Elliot Serrano MD [Primary Care Provider] - Please follow up with your Primary Care Physician in: as needed Please Follow Up With: Hospice When: This week
--- NOTE | 2019-10-02 11:49 | DS.PCM_ITS ---
<Elvin Caballero - Last Filed: 10/02/19 11:49> Discharge Date and Diagnosis Date of Admission: 09/30/19 Date of Discharge: 10/02/19 - Primary Discharge Diagnosis Acute Problems: Active Problems (Last Reviewed 09/15/19 @ 15:37 by Danielle Escoto) Sepsis 2/2 UTI, Proteus Prostate cancer with bone mets. - Secondary Discharge Diagnosis Chronic Problems: Chronic Problems (Last Reviewed 09/15/19 @ 15:37 by Danielle Escoto) Chronic back pain (Chronic) Debility (Chronic) Coronary artery disease (Chronic) Bone metastases (Chronic) Prostate cancer (Chronic) Hospital Course and Treatment Imaging Results: US/Kidney and Bladder IMPRESSION: Right renal atrophy. No acute abnormalities of the kidneys. Marked thickening of the bladder wall. Operations: None Procedures: None Summary of Care Provided: Hospital course: The patient is a 74 year old M with pmhx of prostate cancer with bone mets who presented to the ER with c/o dysuria, frequency, and hematuria over the past 2 weeks. He came to the emergency room and was found to have sepsis and urinary tract infection. He had leukocytosis, tachycardia, and positive UA. He was started on IV ceftriaxone and admitted to the medical surgical floor. Urine culture demonstrated Proteus mirabilis resistant to nitrofurantoin. He had a penicillin allergy however tolerated ceftriaxone well so he was transitioned to Omnicef. He will complete 7 days total therapy. With his underlying prosecuted through bone mets hospice was consulted, spoke with the family and patient and the decision was made for [facility] side. The patient was discharged in stable condition and will need to follow-up with hospice as needed. This patient was seen by Elvin Caballero PA-C under the supervision of Doctor Ontiveros. [] - Physical Exam Vitals/I&O's: Vital Signs Temp Pulse Resp BP Pulse Ox 98.3 F 108 H 18 130/84 H 94 10/02/19 09:04 10/02/19 09:13 10/02/19 09:04 10/02/19 09:13 10/02/19 09:04 Oxygen Flow Rate (L/min) 2 Oxygen Delivery Method Room Air Weight: 131 lb 13.383 oz Body Mass Index (BMI) 19.4 Intake and Output for Last 24 Hours 09/30/19 10/01/19 10/02/19 23:59 23:59 23:59 Intake Total 1192.5 / 1192.5 1790.00 / 1790.00 120 / 120 Output Total 525 / 525 1400 / 1400 450 / 450 Balance 667.5 / 667.5 390.00 / 390.00 -330 / -330 General: Alert, Oriented x3, Cooperative HEENT: Atraumatic, PERRLA, EOMI, Normocephalic Neck: Supple, No JVD, Negative Carotid Bruits Lungs: Clear to auscultation, Normal air movement Cardiovascular: Regular rate, No murmurs Abdomen: Bowel Sounds Present, Soft, Non Tender Extremities: No edema, Capillary Refill Less than 3 Seconds Skin: No rashes, No breakdown Musculoskeletal: No Tenderness to Palpation of Joints or Extremities Neurological: Cranial nerves II-XII grossly intact Psych/Mental Status: Normal Affect, Appropriate, Alert and oriented to time, place, person, mood and affect Microbiology Past 72 Hours 09/30/19 12:15 Urine, Clean Catch Urine Culture - Final Proteus mirabilis Laboratory Results 09/30/19 12:25: Diff Path Review Reviewed 10/02/19 05:48: WBC 13.1 H, RBC 2.92 L, Hgb 10.2 L, Hct 31.3 L, MCV 107.2 H, MCH 34.9 H, MCHC 32.6, RDW Std Deviation 60.6 H, RDW Coeff of Santi 15.4 H, Plt Count 213, MPV 10.3, Immature Gran % (Auto) 2.000 H, Neut % (Auto) 72.3 H, Lymph % (Auto) 13.5 L, Meagher % (Auto) 11.4 H, Eos % (Auto) 0.5, Baso % (Auto) 0.3, Absolute Neuts (auto) 9.5 H, Absolute Lymphs (auto) 1.77, Nucleated RBC % 0.5 10/02/19 05:48: Sodium 137, Potassium 3.9, Chloride 107, Carbon Dioxide 25.0, Anion Gap 5, BUN 22 H, Creatinine 0.79, Estim Creat Clear Calc 53.99, Est GFR (MDRD) Af Amer 123, Est GFR (MDRD) Non-Af 101, BUN/Creatinine Ratio 27.8 H, Glucose 158 H, Calcium 7.9 L Current Medications Acetaminophen (Tylenol) 650 mg PO Q6H PRN PRN PRN Reason: Pain Score 1-10/Temp > 100.7 F Last Admin: 09/30/19 16:40 Dose: 650 mg Documented by: Acetaminophen (Tylenol) 500 mg PO TID [facility], [facility] Last Admin: 10/02/19 05:15 Dose: 500 mg Documented by: Aspirin (Aspirin, Baby) 81 mg PO DAILY@0800 [facility], [facility] Last Admin: 10/02/19 08:55 Dose: 81 mg Documented by: Atorvastatin Calcium (Lipitor) 40 mg PO QHS [facility], [facility] Last Admin: 10/01/19 20:51 Dose: 40 mg Documented by: Calcium/Vitamin D (Os-Jm 500mg + D) [facility] Last Admin: 10/02/19 08:55 Dose: 1 tablet Documented by: Clopidogrel Bisulfate (Plavix) 75 mg PO QHS [facility] Last Admin: 10/01/19 20:51 Dose: 75 mg Documented by: Sodium Chloride () 250 mls @ 15 mls/hr IV .[id number] PRN PRN Reason: Saline Flush Sodium Chloride () 250 mls @ 15 mls/hr IV .[id number] PRN PRN Reason: Additional IVPB Infusion Ceftriaxone Sodium (Rocephin) 1 gm in 50 mls @ 100 mls/hr IV Q24 [facility] Last Admin: 10/02/19 09:13 Dose: 100 mls/hr Documented by: Magnesium Hydroxide (Milk Of Magnesia) 30 ml PO DAILY PRN PRN PRN Reason: Constipation Melatonin (Melatonin) 3 mg PO QHS PRN PRN PRN Reason: INSOMNIA Metoprolol Tartrate (Lopressor (Beta Yury)) 25 mg PO BID [facility] Last Admin: 10/02/19 09:13 Dose: 25 mg Documented by: Mirtazapine (Remeron) 15 mg PO QHS [facility] Last Admin: 10/01/19 20:51 Dose: 15 mg Documented by: Nutritional Formula (Lactose Free) (Ensure Enlive) 120 ml PO 4X/DAY [facility] Last Admin: 10/02/19 09:12 Dose: Not Given Documented by: Ondansetron HCl (Zofran) 4 mg IV Q8H PRN PRN PRN Reason: NAUSEA/VOMITING Last Admin: 10/01/19 22:22 Dose: 4 mg Documented by: Phenazopyridine HCl (Azo Standard) 95 mg PO TID [facility] Stop: 10/03/19 06:01 Last Admin: 10/02/19 05:14 Dose: Not Given Documented by: [facility] () [facility] Last Admin: 10/02/19 08:55 Dose: 5 mg Documented by: Sodium Chloride () 10 - 40 ml IV UD PRN PRN Reason: SALINE FLUSH Last Admin: 10/02/19 09:14 Dose: 10 ml Documented by: Tramadol HCl (Ultram) 50 mg PO Q12H PRN PRN Reason: Pain Score 1-10/10 Last Admin: 09/30/19 20:25 Dose: 50 mg Documented by: Discharge Diet: No Restrictions Discharge Activity: Return to Normal Activity Home Medications: Medications to take at Discharge Aspirin [Aspirin, Baby] 81 mg PO DAILY@0800 07/27/19 Atorvastatin Calcium 40 mg PO QHS 07/27/19 Clopidogrel Bisulfate [Plavix] 75 mg PO QHS 07/27/19 Metoprolol Tartrate [Lopressor (beta yury)] 25 mg PO BID 07/27/19 Mirtazapine [Remeron] 15 mg PO QHS 07/27/19 [place]-3 Fatty Acids [[place]-3] 1,000 mg PO BID 07/27/19 Tramadol HCl [Ultram] 50 mg PO Q12H PRN 07/27/19 Glucosam/Reese-Msm1/C/Hair/Bosw [Osteo Bi-Flex Caplet] 2 tab PO BREAKFAST Abiraterone Acetate [Zytiga] 1,000 mg PO DAILY 09/15/19 Prednisone 5 mg PO BID 09/15/19 Acetaminophen [Tylenol Arthritis] 650 mg PO BID 09/30/19 Calcium Carb/Vitamin D [Caltrate-600 With Vit D Tab] 1 tab PO BIDCM 09/30/19 Nitroglycerin 0.4 mg SL PRN PRN 09/30/19 Cefdinir [Omnicef [equiv]] 300 mg PO Q12H #8 cap 10/02/19 Ensure Enlive 120 ml PO 4X/DAY liquid 10/02/19 Magnesium Hydroxide [Milk Of Magnesia] 30 ml PO DAILY PRN PRN udc 10/02/19 Melatonin 3 mg PO QHS PRN PRN tab 10/02/19 Following Prescriptions Were Given to Patient: Cefdinir [Omnicef [equiv]] 300 mg PO Q12H #8 cap Primary Care Physician: Elliot Serrano MD [Primary Care Provider] - Please follow up with your Primary Care Physician in: as needed Please Follow Up With: Hospice When: This week Disposition: [facility] Minutes spent on discharge:: 35 Patient Condition:: Stable Medical Necessity - Tobacco Use Smoking Status: Former smoker Tobacco Use: Non-smoker Meaningful Use Info Meaningful Use Diagnoses (Choose all that apply): None applicable <Braydon Ontiveros - Last Filed: 10/02/19 15:59> Discharge Date and Diagnosis - Secondary Discharge Diagnosis Chronic Problems: Chronic Problems (Last Reviewed 09/15/19 @ 15:37 by Danielle Escoto) Chronic back pain (Chronic) Debility (Chronic) Coronary artery disease (Chronic) Bone metastases (Chronic) Prostate cancer (Chronic) Hospital Course and Treatment Summary of Care Provided: The patient is a 74 year old M [] - Physical Exam Vitals/I&O's: Vital Signs Temp Pulse Resp BP Pulse Ox 98.5 F 94 16 126/67 H 94 10/02/19 13:27 10/02/19 13:27 10/02/19 13:27 10/02/19 13:27 10/02/19 13:27 Oxygen Flow Rate (L/min) 2 Oxygen Delivery Method Room Air Weight: 131 lb 13.383 oz Body Mass Index (BMI) 19.4 Intake and Output for Last 24 Hours 09/30/19 10/01/19 10/02/19 23:59 23:59 23:59 Intake Total 1192.5 / 1192.5 1790.00 / 1790.00 170 / 170 Output Total 525 / 525 1400 / 1400 450 / 450 Balance 667.5 / 667.5 390.00 / 390.00 -280 / -280 Microbiology Past 72 Hours 09/30/19 13:45 Blood Culture (Wb) - Right Forearm Blood Culture - Preliminary No growth in 48 hours. 09/30/19 13:40 Blood Culture (Wb) - Anticubital Left Blood Culture - Preliminary No growth in 48 hours. 09/30/19 12:15 Urine, Clean Catch Urine Culture - Final Proteus mirabilis Laboratory Results 10/02/19 05:48: WBC 13.1 H, RBC 2.92 L, Hgb 10.2 L, Hct 31.3 L, MCV 107.2 H, MCH 34.9 H, MCHC 32.6, RDW Std Deviation 60.6 H, RDW Coeff of Santi 15.4 H, Plt Count 213, MPV 10.3, Immature Gran % (Auto) 2.000 H, Neut % (Auto) 72.3 H, Lymph % (Auto) 13.5 L, Meagher % (Auto) 11.4 H, Eos % (Auto) 0.5, Baso % (Auto) 0.3, Absolute Neuts (auto) 9.5 H, Absolute Lymphs (auto) 1.77, Nucleated RBC % 0.5 10/02/19 05:48: Sodium 137, Potassium 3.9, Chloride 107, Carbon Dioxide 25.0, Anion Gap 5, BUN 22 H, Creatinine 0.79, Estim Creat Clear Calc 53.99, Est GFR (MDRD) Af Amer 123, Est GFR (MDRD) Non-Af 101, BUN/Creatinine Ratio 27.8 H, Glucose 158 H, Calcium 7.9 L Addendum: Dr. Ontiveros I personally examined the patient and reviewed the chart. I agree with the above. 74-year-old male with a history of metastatic prostate cancer who lives in assisted living presents with dysuria and frequency. He is found to have a gram-negative debby UTI, spent sensitivities and speciation are still pending. We will continue with antibiotics however family would like to discuss his case with hospice. He has the beginnings of dementia but is still very alert and is also okay with discussing hospice care. Continue with his IV antibiotics for now however if he does choose to go hospice he can transition to oral antibiotics and continue these while on hospice. 10/02/2019: He is doing well today, he understands what he needs to be going back [facility]. His cultures did finalize with a fairly sensitive Proteus therefore he will be discharged to complete 7 days of Omnicef at the senior living while on hospice. Explained to him that he can take oral antibiotics on hospice. Inpatient E&M: [id number] Disch Hosp
--- NOTE | 2019-10-02 12:49 | PHA.DC.MR ---
Pharmacy Service has performed discharge medication reconciliation for this patient upon transfer to [facility]. The patient's discharge medication list was reviewed for discrepancies and discrepancies were resolved. Home Medications Aspirin [Aspirin, Baby] 81 mg PO DAILY@0800 07/27/19 Atorvastatin Calcium 40 mg PO QHS 07/27/19 Clopidogrel Bisulfate [Plavix] 75 mg PO QHS 07/27/19 Metoprolol Tartrate [Lopressor (beta obdulio)] 25 mg PO BID 07/27/19 Mirtazapine [Remeron] 15 mg PO QHS 07/27/19 [place]-3 Fatty Acids [[place]-3] 1,000 mg PO BID 07/27/19 Tramadol HCl [Ultram] 50 mg PO Q12H PRN 07/27/19 Glucosam/Reese-Msm1/C/Hair/Bosw [Osteo Bi-Flex Caplet] 2 tab PO BREAKFAST 08/06/19 Abiraterone Acetate [Zytiga] 1,000 mg PO DAILY 09/15/19 Prednisone 5 mg PO BID 09/15/19 Acetaminophen [Tylenol Arthritis] 650 mg PO BID 09/30/19 Calcium Carb/Vitamin D [Caltrate-600 With Vit D Tab] 1 tab PO BIDCM 09/30/19 Nitroglycerin 0.4 mg SL PRN PRN 09/30/19 Cefdinir [Omnicef [equiv]] 300 mg PO Q12H #8 cap 10/02/19 Ensure Enlive 120 ml PO 4X/DAY liquid 10/02/19 Magnesium Hydroxide [Milk Of Magnesia] 30 ml PO DAILY PRN PRN udc 10/02/19 Melatonin 3 mg PO QHS PRN PRN tab 10/02/19
--- NOTE | 2019-10-02 13:00 | CASEMGMT ---
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 ED faxed completed discharge paperwork to [facility] including transfer to extended care facility, COVID screening tool, signed medication list and any scripts. Original in SNF folder and copy on pt's chart. SW in to speak with pt and updated him on discharge back to [facility] today. Pt states he will need transportation to be arranged via wheelchair van. Pt also gave permission for this worker to call his daughter Rere to update on discharge. SW placed a call to [facility] and arranged transportation via wheelchair van for 2:00pm. Transportation form completed and placed on SNF folder and copy on pt's chart. SW updated RN on transportation time. ED placed a call to Lorena at [facility] and updated her on discharge and transportation time. ED placed a call to pt's daughter Rere and left message updating her on discharge and transportation time. ED placed a call to [facility] and spoke with Jeanne in admissions. ED updated Jeanne that pt will be discharged back to [facility] today. Jeanne states pt's daughter will be at [facility] today around 4:00pm to sign Hospice paperwork. ED faxed discharge paperwork to [facility]. Plan: [facility] transporting pt via wheelchair van at 2:00pm Lucia Eduardo MSW, CLINICAL TRIAL LEADER
[2019-10-02 13:27] VITALS: BP 126/67; PULSE 94; RESP 16; TEMP 36.9; O2SAT 94
== END 2019-10-02 14:29 | disposition hospice, home (50) | DRG 872 ==
LOC: ED 12:40 → MS3 13:33
PROVIDERS: Physician Assistant; Admitting Provider Internal Medicine; Emergency Provider Emergency Medicine; PCP Family Medicine; Visit Provider Family Medicine
DX: A41.9 Sepsis, unspecified organism (principal); N30.01 Acute cystitis with hematuria; C79.51 Secondary malignant neoplasm of bone; Z16.29 Resistance to other single specified antibiotic; C61 Malignant neoplasm of prostate; B96.4 Proteus (mirabilis) (morganii) as the cause of diseases classified elsewhere; F03.90 Unspecified dementia, unspecified severity, without behavioral disturbance, psychotic disturbance, mood disturbance, and anxiety; E78.00 Pure hypercholesterolemia, unspecified; F32.9 Major depressive disorder, single episode, unspecified; E78.5 Hyperlipidemia, unspecified; G89.29 Other chronic pain; M54.5 Low back pain; N18.3 Chronic kidney disease, stage 3 (moderate); I12.9 Hypertensive chronic kidney disease with stage 1 through stage 4 chronic kidney disease, or unspecified chronic kidney disease; I25.10 Atherosclerotic heart disease of native coronary artery without angina pectoris; Z79.02 Long term (current) use of antithrombotics/antiplatelets; I25.2 Old myocardial infarction; Z99.3 Dependence on wheelchair; Z66 Do not resuscitate; Z87.891 Personal history of nicotine dependence; Z90.49 Acquired absence of other specified parts of digestive tract; Z88.0 Allergy status to penicillin; Z80.3 Family history of malignant neoplasm of breast; Z51.5 Encounter for palliative care
CPT/HCPCS: 36415; 76770; 80048; 80053; 80076; 81001; 83605; 85025; 86850; 86900; 86901; 87040; 87077; 87086; 87088; 87186; 97162; 97166; 97530; 97802; 99285; J7030; A4216; J2405